=== PATIENT | female | born 1995 | race Hispanic/Latino ===

== ENCOUNTER 2022-04-06 17:18 | Emergency (ER) | payer MEDICAID, OTHER ==
[~2022-04-06] VITALS: Ht 157.5 cm; Wt 88.9 kg
[2022-04-06 17:51] LABS: BASOPHILS % (AUTO) 0.3 % (0.0-5.0); EOSINOPHILS % (AUTO) 2.4 % (0.0-8.0); HEMATOCRIT 41.2 % (36-48); LYMPHOCYTES % (AUTO) 25.2 % (21.0-51.0); MEAN CORPUSCULAR HEMOGLOBIN 28.6 pg (27.0-33.0); MEAN CORPUSCULAR VOLUME 86.7 fL (79-99); MONOCYTES % (AUTO) 7.5 % (3.0-13.0); NEUTROPHILS % (AUTO) 63.9 % (40.0-77.0); PLATELET COUNT (AUTO) 278 K/uL (130-400); RED BLOOD CELL COUNT(AUTO) 4.75 MIL/uL (4.00-5.50); WHITE BLOOD COUNT (AUTO) 10.8 K/uL (4.8-10.8)
[2022-04-06 18:00] LABS: AMPHET/METH SCREEN,URINE NEGATIVE (NEGATIVE); BARBITURATE SCREEN, URINE NEGATIVE (NEGATIVE); BENZODIAZEPINES SCREEN,URINE NEGATIVE (NEGATIVE); CANNABINOID SCREEN,URINE NEGATIVE (NEGATIVE); COCAINE SCREEN,URINE NEGATIVE (NEGATIVE); OPIATE SCREEN,URINE NEGATIVE (NEGATIVE); PHENCYCLIDINE SCREEN,URINE NEGATIVE (NEGATIVE)
[2022-04-06 18:00] LABS: CREATININE 0.6 mg/dL (0.5-1.5); POTASSIUM 3.7 mmol/L (3.5-5.1)
[2022-04-06] MEDS ORDERED: HYDROXYZINE 25 MG TABLET PO ONE (18:00)
[2022-04-06 18:01] LABS: HCG,QUALITATIVE URINE NEGATIVE (NEGATIVE)
[2022-04-06 18:02] LABS: APPEARANCE,URINE Clear (CLEAR); BILIRUBIN,URINE Negative (NEGATIVE); COLOR,URINE Yellow (YELLOW); GLUCOSE, URINE (UA) Negative (NEGATIVE); KETONES,URINE Negative (NEGATIVE); LEUKOCYTE ESTERASE ,URINE Negative (NEGATIVE); NITRATE,URINE Negative (NEGATIVE); OCCULT BLOOD,URINE Large (NEGATIVE); PH,URINE 7.5 (5.0-8.0); PROTEIN,URINE Negative (NEGATIVE)
[2022-04-06 18:09] LABS: ALBUMIN 3.9 g/dL (3.5-5.0); TOTAL PROTEIN, SERUM 7.4 g/dL (6.0-8.3)
[2022-04-06 18:11] LABS: WBC,URINE 0-1 /HPF (0-1)
[2022-04-06 18:12] LABS: BACTERIA,URINE Rare /HPF (None Seen); SQUAMOUS EPITHELIAL CELL,UR Few /HPF (0-2)
[2022-04-06] MEDS ORDERED: HYDR-3421 PO (18:27)
[2022-04-06 18:42] VITALS: BP 141/101
== END 2022-04-06 18:42 | disposition home or self-care (01) ==
LOC: EDH 17:18
DX: F41.9 Anxiety disorder, unspecified (principal); R20.2 Paresthesia of skin; R03.0 Elevated blood-pressure reading, without diagnosis of hypertension; R07.89 Other chest pain; Z20.822 Contact with and (suspected) exposure to COVID-19; E66.9 Obesity, unspecified; Z68.35 Body mass index [BMI] 35.0-35.9, adult
CPT/HCPCS: 99284; 71045; 87635; 82550; 84484; 80053; 80305; 85025; 87804 ×2; 81025; 36415; 81001; C9803

== ENCOUNTER 2022-10-05 14:02 | Emergency (ER) | payer BC, OTHER ==
[~2022-10-05] VITALS: Ht 157.5 cm; Wt 91.2 kg
[~2022-10-05 14:02] MED LIST: HYDR-3421 PO
[2022-10-05 14:59] LABS: BASOPHILS % (AUTO) 0.3 % (0.0-5.0); EOSINOPHILS % (AUTO) 0.6 % (0.0-8.0); HEMATOCRIT 40.4 % (36-48); LYMPHOCYTES % (AUTO) 26.1 % (21.0-51.0); MEAN CORPUSCULAR HEMOGLOBIN 28.4 pg (27.0-33.0); MEAN CORPUSCULAR HGB CONC 32.4 g/dL (32.0-36.0); MEAN CORPUSCULAR VOLUME 87.4 fL (79-99); MONOCYTES % (AUTO) 6.7 % (3.0-13.0); PLATELET COUNT (AUTO) 276 K/uL (130-400); RED BLOOD CELL COUNT(AUTO) 4.62 MIL/uL (4.00-5.50); RED CELL DISTRIBUTION WIDTH 13.8 % (11.0-15.5); WHITE BLOOD COUNT (AUTO) 9.4 K/uL (4.8-10.8)
[2022-10-05 15:15] LABS: CREATININE 0.7 mg/dL (0.5-1.5); POTASSIUM 3.8 mmol/L (3.5-5.1)
[2022-10-05 15:19] LABS: ALBUMIN 4.1 g/dL (3.5-5.0); TOTAL PROTEIN, SERUM 7.5 g/dL (6.0-8.3)
[2022-10-05 15:21] LABS: APPEARANCE,URINE CLEAR (CLEAR); BILIRUBIN,URINE NEGATIVE (NEGATIVE); COLOR,URINE COLORLESS (YELLOW); GLUCOSE, URINE (UA) NEGATIVE (NEGATIVE); KETONES,URINE 5 mg/dL (NEGATIVE); LEUKOCYTE ESTERASE ,URINE NEGATIVE Leu/uL (NEGATIVE); NITRATE,URINE NEGATIVE (NEGATIVE); OCCULT BLOOD,URINE LARGE (NEGATIVE); PH,URINE 7.5 (5.0-8.0); PROTEIN,URINE NEGATIVE (NEGATIVE); UROBILINOGEN,URINE 0.2 mg/dL (0.2-1.0)
[2022-10-05 15:28] LABS: BACTERIA,URINE RARE /HPF (None Seen); RBC,URINE 26-50 /HPF (0-1); SQUAMOUS EPITHELIAL CELL,UR FEW /HPF (0-2)
[2022-10-05] MEDS ORDERED: HYDR-3420 PO (15:51)
[2022-10-05] MEDS ORDERED: ISOS20TA85 PO (15:51)
[2022-10-05] MEDS ORDERED: CLON0.1T PO (15:51)
[2022-10-05] MEDS ORDERED: APIX5TAB PO (15:51)
[2022-10-05] MEDS ORDERED: TORS20TA4 PO (15:51)
[2022-10-05] MEDS ORDERED: LOSA1TAB42 PO (15:51)
[2022-10-05] MEDS ORDERED: CARV12.511 PO (15:51)
[2022-10-05] MEDS ORDERED: HYDR-4154 PO (15:51)
[2022-10-05] MEDS ORDERED: AMIO200T68 PO (15:51)
[2022-10-05] MEDS ORDERED: METO5TAB7 PO (15:51)
[2022-10-05] MEDS ORDERED: ACETAMINOPHEN 500 MG TABLET PO ONE (16:00)
[2022-10-05] MEDS ORDERED: LANO3.5O OP (18:25)
[2022-10-05] MEDS ORDERED: PRED20TA3 PO ×2 (18:25→18:27)
[2022-10-05 18:44] VITALS: BP 126/64
== END 2022-10-05 19:25 | disposition home or self-care (01) ==
LOC: EDH 14:02
DX: G51.0 Bell's palsy (principal); Z79.899 Other long term (current) drug therapy; Z90.49 Acquired absence of other specified parts of digestive tract; Z98.890 Other specified postprocedural states
CPT/HCPCS: 36415; 70450; 80053; 81001; 81025; 85025

== ENCOUNTER 2022-12-28 10:17 | Emergency (ER) | payer BC ==
[~2022-12-28] VITALS: Ht 157.5 cm; Wt 89.4 kg
[~2022-12-28 10:17] MED LIST changes: +AMIO200T68 PO; +APIX5TAB PO; +CARV12.511 PO; +CLON0.1T PO; +HYDR-3420 PO; +HYDR-4154 PO; +ISOS20TA85 PO; +LANO3.5O OP; +LOSA1TAB42 PO; +METO5TAB7 PO; +PRED20TA3 PO; +TORS20TA4 PO
[2022-12-28 10:39] LABS: APPEARANCE,URINE CLEAR (CLEAR); BILIRUBIN,URINE NEGATIVE (NEGATIVE); COLOR,URINE LIGHT-YELLOW (YELLOW); GLUCOSE, URINE (UA) NEGATIVE (NEGATIVE); KETONES,URINE NEGATIVE (NEGATIVE); LEUKOCYTE ESTERASE ,URINE NEGATIVE Leu/uL (NEGATIVE); NITRATE,URINE NEGATIVE (NEGATIVE); OCCULT BLOOD,URINE NEGATIVE (NEGATIVE); PH,URINE 7.5 (5.0-8.0); PROTEIN,URINE NEGATIVE (NEGATIVE); UROBILINOGEN,URINE 0.2 mg/dL (0.2-1.0)
[2022-12-28 10:42] LABS: HCG,QUALITATIVE URINE NEGATIVE (NEGATIVE)
[2022-12-28] MEDS ORDERED: IBUP-2070 PO (13:00)
[2022-12-28] MEDS ORDERED: DEXAMETHASONE SOD PHOSPHATE 4 MG/ML 1ML VIAL IM ONE (13:00)
[2022-12-28] MEDS ORDERED: KETOROLAC 30MG VIAL (30MG/ML) IM ONE (13:00)
[2022-12-28] MEDS ORDERED: PENICILLIN G BENZATHINE LA 1.2 MILUNITS/2 ML SYG IM ONE (13:00)
[2022-12-28 13:17] VITALS: BP 131/94
== END 2022-12-28 13:22 | disposition home or self-care (01) ==
LOC: EDH 10:17
DX: J02.0 Streptococcal pharyngitis (principal); E66.01 Morbid (severe) obesity due to excess calories; Z68.36 Body mass index [BMI] 36.0-36.9, adult; Z20.822 Contact with and (suspected) exposure to COVID-19; Z79.899 Other long term (current) drug therapy; Z90.49 Acquired absence of other specified parts of digestive tract; Z98.890 Other specified postprocedural states
CPT/HCPCS: 99284; 87635; 87880; 87804 ×2; 81003; 81025; 96372 ×3; J0561; J1100; C9803; J1885

== ENCOUNTER 2023-03-01 09:06 | Emergency (ER) | payer BC, OTHER ==
[~2023-03-01] VITALS: Ht 157.5 cm; Wt 88.9 kg
[~2023-03-01 09:06] MED LIST changes: +IBUP-2070 PO
[2023-03-01 09:09] VITALS: BP 158/104
[2023-03-01 09:42] LABS: APPEARANCE,URINE CLEAR (CLEAR); BILIRUBIN,URINE NEGATIVE (NEGATIVE); COLOR,URINE COLORLESS (YELLOW); GLUCOSE, URINE (UA) NEGATIVE (NEGATIVE); KETONES,URINE NEGATIVE (NEGATIVE); LEUKOCYTE ESTERASE ,URINE NEGATIVE Leu/uL (NEGATIVE); NITRATE,URINE NEGATIVE (NEGATIVE); OCCULT BLOOD,URINE NEGATIVE (NEGATIVE); PROTEIN,URINE NEGATIVE (NEGATIVE); UROBILINOGEN,URINE 0.2 mg/dL (0.2-1.0)
[2023-03-01 09:48] LABS: HCG,QUALITATIVE URINE NEGATIVE (NEGATIVE)
[2023-03-01] MEDS ORDERED: IBUPROFEN 600 MG TABLET PO ONE (11:00)
[2023-03-01] MEDS ORDERED: PENICILLIN G BENZATHINE LA 1.2 MILUNITS/2 ML SYG IM ONE ×2 (11:00→11:30)
== END 2023-03-01 11:23 | disposition home or self-care (01) ==
LOC: EDH 09:06
DX: J02.0 Streptococcal pharyngitis (principal); E66.01 Morbid (severe) obesity due to excess calories; Z20.822 Contact with and (suspected) exposure to COVID-19; Z68.38 Body mass index [BMI] 38.0-38.9, adult; Z90.49 Acquired absence of other specified parts of digestive tract; Z98.890 Other specified postprocedural states
CPT/HCPCS: 99283; 87635; 87880; 87804 ×2; 81003; 81025; 96372; C9803; J0561

== ENCOUNTER 2023-05-17 10:09 | Emergency (ER) | payer OTHER ==
[~2023-05-17] VITALS: Ht 157.5 cm; Wt 90.7 kg
[2023-05-17 10:10] VITALS: BP 153/92; PULSE 67; RESP 17
[2023-05-17 10:38] LABS: RAPID GROUP A STREP negative (NEGATIVE)
[2023-05-17 10:44] LABS: SARS-CoV-2, RNA, NAAT NEGATIVE SARS CoV-2 (NEGATIVE)
[2023-05-17 10:48] LABS: INFLUENZA TYPE A Negative For Type A (NEGATIVE); INFLUENZA TYPE B Negative For Type B (NEGATIVE)
[2023-05-17] MEDS ORDERED: PREDNISONE 20 MG TABLET PO ONE (11:00)
[2023-05-17] MEDS ORDERED: IBUPROFEN 600 MG TABLET PO ONE (11:00)
[2023-05-17] MEDS ORDERED: D-ME118S47 PO (11:43)
[2023-05-17] MEDS ORDERED: PRED20TA3 PO (11:43)
[2023-05-17] MEDS ORDERED: IBUP-2070 PO (11:43)
== END 2023-05-17 11:53 | disposition home or self-care (01) ==
LOC: EDH 10:09
DX: J06.9 Acute upper respiratory infection, unspecified (principal); E66.01 Morbid (severe) obesity due to excess calories; Z20.822 Contact with and (suspected) exposure to COVID-19; Z68.36 Body mass index [BMI] 36.0-36.9, adult; Z79.899 Other long term (current) drug therapy; Z90.49 Acquired absence of other specified parts of digestive tract; Z98.890 Other specified postprocedural states
CPT/HCPCS: 99283; 87635; 87880; 87804 ×2; C9803